=== PATIENT | female | born 1980 | race Two or more races ===

== ENCOUNTER 2018-08-30 17:00 | Observation (INO) | payer MEDICAID | END 2018-08-30 18:35 | disposition home or self-care (01) | DRG 566 | LOC: LDRP 17:00 | PROVIDERS: ADMIT Obstetrics & Gynecology; ATTEND Obstetrics & Gynecology | DX: O26.893 Other specified pregnancy related conditions, third trimester (principal); Z3A.35 35 weeks gestation of pregnancy | CPT/HCPCS: 59025; 76818; 81002; G0378 ==

== ENCOUNTER 2018-09-03 08:05 | Observation (INO) | payer MEDICAID ==
[~2018-09-03] VITALS: Ht 162.6 cm; Wt 73.9 kg
[2018-09-03] MEDS ORDERED: PREN-145 OR (08:25)
[2018-09-03] MEDS ORDERED: FERR27TA2 PO (08:25)
[2018-09-03] MEDS ORDERED: MULTCAP45 PO (08:25)
== END 2018-09-03 09:20 | disposition home or self-care (01) | DRG 955 ==
LOC: LDRP 08:05
PROVIDERS: ADMIT Obstetrics & Gynecology; ATTEND Obstetrics & Gynecology
DX: O09.523 Supervision of elderly multigravida, third trimester (principal); Z3A.35 35 weeks gestation of pregnancy
CPT/HCPCS: 59025; 76815; 81002; G0378

== ENCOUNTER 2018-09-06 11:07 | Observation (INO) | payer MEDICAID ==
[~2018-09-06 11:07] MED LIST: FERR27TA2 PO; MULTCAP45 PO; PREN-145 OR
== END 2018-09-06 12:20 | disposition home or self-care (01) | DRG 566 ==
LOC: LDRP 11:07
PROVIDERS: ADMIT Obstetrics & Gynecology; ATTEND Obstetrics & Gynecology
DX: O36.4XX0 Maternal care for intrauterine death, not applicable or unspecified (principal); Z3A.36 36 weeks gestation of pregnancy
CPT/HCPCS: 59025; 76818; 81002; G0378

== ENCOUNTER 2018-09-10 08:25 | Observation (INO) | payer MEDICAID | END 2018-09-10 11:00 | disposition home or self-care (01) | DRG 566 | LOC: LDRP 08:25 | PROVIDERS: ADMIT Obstetrics & Gynecology; ATTEND Obstetrics & Gynecology | DX: O36.4XX0 Maternal care for intrauterine death, not applicable or unspecified (principal); O09.523 Supervision of elderly multigravida, third trimester; Z3A.36 36 weeks gestation of pregnancy | CPT/HCPCS: 59025; 76815; 81002; G0378 ==

== ENCOUNTER 2018-09-13 11:55 | Observation (INO) | payer MEDICAID ==
[~2018-09-13] VITALS: Ht 162.6 cm; Wt 75.3 kg
== END 2018-09-13 13:20 | disposition home or self-care (01) | DRG 566 ==
LOC: LDRP 11:55
PROVIDERS: ADMIT Obstetrics & Gynecology; ATTEND Obstetrics & Gynecology
DX: O36.4XX0 Maternal care for intrauterine death, not applicable or unspecified (principal); O09.523 Supervision of elderly multigravida, third trimester; Z3A.37 37 weeks gestation of pregnancy
CPT/HCPCS: 76818; G0378; 59025; 81002

== ENCOUNTER 2018-09-15 08:55 | Observation (INO) | payer MEDICAID | END 2018-09-15 10:10 | disposition home or self-care (01) | DRG 566 | LOC: LDRP 08:55 | PROVIDERS: ADMIT Obstetrics & Gynecology; ATTEND Obstetrics & Gynecology | DX: O36.4XX0 Maternal care for intrauterine death, not applicable or unspecified (principal); O09.523 Supervision of elderly multigravida, third trimester; Z3A.37 37 weeks gestation of pregnancy | CPT/HCPCS: 59025; 76818; 81002; G0378 ==

== ENCOUNTER 2018-09-18 16:49 | Observation (INO) | payer MEDICAID | END 2018-09-18 22:45 | disposition home or self-care (01) | DRG 955 | LOC: LDRP 21:13 | PROVIDERS: ADMIT Obstetrics & Gynecology; ATTEND Obstetrics & Gynecology | DX: O09.523 Supervision of elderly multigravida, third trimester (principal); Z3A.38 38 weeks gestation of pregnancy | CPT/HCPCS: 59025; 76818; 81002; G0378 ==

== ENCOUNTER 2018-09-21 10:32 | Observation (INO) | payer MEDICAID | END 2018-09-21 11:45 | disposition home or self-care (01) | DRG 955 | LOC: LDRP 10:32 | PROVIDERS: ADMIT Specialist; ATTEND Specialist | DX: O09.523 Supervision of elderly multigravida, third trimester (principal); Z3A.38 38 weeks gestation of pregnancy | CPT/HCPCS: 59025; 76818; 81002; G0378 ==

== ENCOUNTER 2018-09-23 01:41 | Observation (INO) | payer MEDICAID | END 2018-09-23 03:32 | disposition home or self-care (01) | DRG 566 | LOC: LDRP 01:41 | PROVIDERS: ADMIT Specialist; ATTEND Specialist | DX: O36.8930 Maternal care for other specified fetal problems, third trimester, not applicable or unspecified (principal); O09.523 Supervision of elderly multigravida, third trimester; Z3A.38 38 weeks gestation of pregnancy | CPT/HCPCS: 59025; 76818; 81002; G0378 ==

== ENCOUNTER 2021-09-02 09:35 | Observation (INO) | payer MEDICAID | END 2021-09-02 11:43 | disposition home or self-care (01) | LOC: LDRP 09:35 | PROVIDERS: ADMIT Obstetrics & Gynecology; ATTEND Obstetrics & Gynecology | DX: O69.81X0 Labor and delivery complicated by cord around neck, without compression, not applicable or unspecified (principal); Z3A.31 31 weeks gestation of pregnancy | CPT/HCPCS: 59025; 76818; 81002; 94760; G0378 ==

== ENCOUNTER 2021-09-06 07:34 | Observation (INO) | payer MEDICAID | END 2021-09-06 10:44 | disposition home or self-care (01) | LOC: LDRP 10:06 | PROVIDERS: ADMIT Obstetrics & Gynecology Obstetrics; ATTEND Obstetrics & Gynecology Obstetrics | DX: O69.81X0 Labor and delivery complicated by cord around neck, without compression, not applicable or unspecified (principal); O09.293 Supervision of pregnancy with other poor reproductive or obstetric history, third trimester; Z3A.31 31 weeks gestation of pregnancy | CPT/HCPCS: 59025; 76818; 81002; 94760; G0378 ==

== ENCOUNTER 2021-09-09 10:19 | Observation (INO) | payer MEDICAID | END 2021-09-09 11:00 | disposition home or self-care (01) | LOC: LDRP 10:19 | PROVIDERS: ADMIT Obstetrics & Gynecology; ATTEND Obstetrics & Gynecology | DX: O69.81X0 Labor and delivery complicated by cord around neck, without compression, not applicable or unspecified (principal); Z3A.32 32 weeks gestation of pregnancy | CPT/HCPCS: 59025; 76818; 81002; 94760; G0378 ==

== ENCOUNTER 2021-09-13 08:56 | Observation (INO) | payer MEDICAID | END 2021-09-13 11:20 | disposition home or self-care (01) | LOC: LDRP 10:20 | PROVIDERS: ADMIT Obstetrics & Gynecology Obstetrics; ATTEND Obstetrics & Gynecology Obstetrics | DX: O69.81X0 Labor and delivery complicated by cord around neck, without compression, not applicable or unspecified (principal); Z3A.32 32 weeks gestation of pregnancy | CPT/HCPCS: 59025; 76818; 81002; 94760; G0378; G0379 ==

== ENCOUNTER 2021-09-16 08:14 | Observation (INO) | payer MEDICAID | END 2021-09-16 12:32 | disposition home or self-care (01) | LOC: LDRP 11:05 | PROVIDERS: ADMIT Obstetrics & Gynecology; ATTEND Obstetrics & Gynecology | DX: O69.81X0 Labor and delivery complicated by cord around neck, without compression, not applicable or unspecified (principal); O62.9 Abnormality of forces of labor, unspecified; Z3A.33 33 weeks gestation of pregnancy | CPT/HCPCS: 59025; 76818; 81002; 94760; G0378 ==

== ENCOUNTER 2021-09-23 09:29 | Observation (INO) | payer MEDICAID | END 2021-09-23 12:10 | disposition home or self-care (01) | LOC: LDRP 10:29 | PROVIDERS: ADMIT Obstetrics & Gynecology; ATTEND Obstetrics & Gynecology | DX: O69.81X0 Labor and delivery complicated by cord around neck, without compression, not applicable or unspecified (principal); Z3A.34 34 weeks gestation of pregnancy | CPT/HCPCS: 59025; 76818; 81002; G0378; G0379 ==

== ENCOUNTER 2021-09-30 09:11 | Observation (INO) | payer MEDICAID ==
[2021-09-30] MEDS ORDERED: TERBUTALINE SULFATE 1 MG/ML 1ML VIAL SC STA (11:39)
== END 2021-09-30 13:03 | disposition home or self-care (01) ==
LOC: LDRP 09:45
PROVIDERS: ADMIT Obstetrics & Gynecology; ATTEND Obstetrics & Gynecology
DX: O69.81X0 Labor and delivery complicated by cord around neck, without compression, not applicable or unspecified (principal); O62.9 Abnormality of forces of labor, unspecified; Z3A.35 35 weeks gestation of pregnancy
CPT/HCPCS: 59025; 76818; 81002; 96372; G0378; J3105

== ENCOUNTER 2021-10-05 09:25 | Observation (INO) | payer MEDICAID ==
[~2021-10-05] VITALS: Ht 162.6 cm; Wt 80.3 kg
[~2021-10-05 09:25] MED LIST changes: -FERR27TA2 PO; -PREN-145 OR
== END 2021-10-05 11:16 | disposition home or self-care (01) ==
LOC: LDRP 09:25
PROVIDERS: ADMIT Obstetrics & Gynecology; ATTEND Obstetrics & Gynecology
DX: O69.81X0 Labor and delivery complicated by cord around neck, without compression, not applicable or unspecified (principal); Z3A.35 35 weeks gestation of pregnancy
CPT/HCPCS: 59025; 76818; 81002; 94760; G0378

== ENCOUNTER 2021-10-14 09:40 | Observation (INO) | payer MEDICAID | END 2021-10-14 11:57 | disposition home or self-care (01) | LOC: LDRP 09:40 | PROVIDERS: ADMIT Obstetrics & Gynecology; ATTEND Obstetrics & Gynecology | DX: O69.81X0 Labor and delivery complicated by cord around neck, without compression, not applicable or unspecified (principal); O40.3XX0 Polyhydramnios, third trimester, not applicable or unspecified; O62.9 Abnormality of forces of labor, unspecified; O09.293 Supervision of pregnancy with other poor reproductive or obstetric history, third trimester; Z3A.37 37 weeks gestation of pregnancy | CPT/HCPCS: 59025; 76818; 81002; G0378 ==

== ENCOUNTER 2021-10-18 10:00 | Observation (INO) | payer MEDICAID | END 2021-10-18 13:28 | disposition home or self-care (01) | LOC: LDRP 10:00 | PROVIDERS: ADMIT Obstetrics & Gynecology Obstetrics; ATTEND Obstetrics & Gynecology Obstetrics | DX: O62.9 Abnormality of forces of labor, unspecified (principal); O48.0 Post-term pregnancy; O69.89X0 Labor and delivery complicated by other cord complications, not applicable or unspecified; O09.293 Supervision of pregnancy with other poor reproductive or obstetric history, third trimester; Z3A.40 40 weeks gestation of pregnancy | CPT/HCPCS: 59025; 76818; 81002; 94760; G0378 ==

== ENCOUNTER 2021-10-21 10:15 | Observation (INO) | payer MEDICAID | END 2021-10-21 11:24 | disposition home or self-care (01) | LOC: LDRP 10:15 | PROVIDERS: ADMIT Obstetrics & Gynecology; ATTEND Obstetrics & Gynecology | DX: O69.81X0 Labor and delivery complicated by cord around neck, without compression, not applicable or unspecified (principal); O09.293 Supervision of pregnancy with other poor reproductive or obstetric history, third trimester; Z3A.38 38 weeks gestation of pregnancy | CPT/HCPCS: 59025; 76818; 81002; 94760; G0378; G0379 ==

== ENCOUNTER 2021-10-25 08:50 | Observation (INO) | payer MEDICAID | END 2021-10-25 14:04 | disposition home or self-care (01) | LOC: LDRP 11:31 | PROVIDERS: ADMIT Obstetrics & Gynecology Obstetrics; ATTEND Obstetrics & Gynecology Obstetrics | DX: O09.293 Supervision of pregnancy with other poor reproductive or obstetric history, third trimester (principal); O62.9 Abnormality of forces of labor, unspecified; Z3A.38 38 weeks gestation of pregnancy | CPT/HCPCS: 59025; 76818; 81002; 94760; G0378 ==

== ENCOUNTER 2021-10-26 00:30 | Inpatient (IN) | payer MEDICAID ==
[~2021-10-26] VITALS: Ht 162.6 cm; Wt 81.6 kg
[2021-10-26] MEDS ORDERED: BUTORPHANOL TARTRATE 2 MG/1 ML VIAL IV PRN ×2 (03:00)
[2021-10-26] MEDS ORDERED: PHISODERM TOP SOLN 240ML BTL TOP PRN (03:00)
[2021-10-26] MEDS ORDERED: LIDOCAINE 2%HCL (LOCAL ANESTH.) INJ 20ML MDV IJ PRN (03:00)
[2021-10-26] MEDS ORDERED: WITCH HAZEL-GLYCERIN PAD TOP PRN (03:00)
[2021-10-26] MEDS ORDERED: DERMOPLAST 60ML BOTTLE TOP PRN (03:00)
[2021-10-26] MEDS ORDERED: PROMETHAZINE HCL 25 MG/ML 1ML IV PRN (03:00)
[2021-10-26] MEDS: LACTATED RINGER'S 1,000 ML IV SCH ×3 (03:13→18:28)
[2021-10-26] MEDS ORDERED: LACT. RINGERS/OXYTOCIN 20UNITS 500 ML IV ONE ×2 (03:15→03:45)
[2021-10-26 03:27] LABS: Basophils # (auto) 0.1 10 ^3/uL (0-0.2); Eosinophils # (auto) 0.1 10 ^3/uL (0-0.8); Lymphocytes # (auto) 1.8 10 ^3/uL (0.4-5.4); Mean Corpuscular Hgb Conc. 31.6 g/dL (32.0-36.0); Monocytes # (auto) 0.5 10 ^3/uL (0-1.3)
[2021-10-26 03:29] LABS: Hematocrit 37.1 % (36.0-46.0); Hemoglobin 11.7 g/dL (12.2-16.2); Lymphocytes % (auto) 20.1 % (10.0-50.0); Mean Corpuscular Volume 79.2 fL (80.0-100.0); Monocytes % (auto) 5.6 % (0.0-12.0); Neutrophils # (auto) 6.4 10 ^3/uL (1.6-8.6); Neutrophils % (auto) 72.3 % (37.0-80.0); Nucleated Red Blood Cells % 0.2 %; Red Blood Cells 4.68 10^6/uL (4.0-5.20); White Blood Cell 8.8 10^3/uL (4.4-10.8)
[2021-10-26 03:30] LABS: Red Cell Distribution Width 24.5 % (11.8-14.3)
[2021-10-26 03:42] LABS: INR 0.94 (0.9-1.15); Partial Thromboplastin Time 30.4 sec (23.6-33.0)
[2021-10-26 04:00] LABS: Albumin 2.7 g/dL (3.4-5.0); BUN/Creatinine Ratio 12.9; Calcium 7.6 mg/dL (8.5-10.1); Potassium 3.7 mmol/L (3.5-5.1)
[2021-10-26 04:02] LABS: Amphetamine Screen, Urine NEGATIVE (NEGATIVE); Barbiturate Scree,Urine NEGATIVE (NEGATIVE); Benzodiazephine Screen, Urine NEGATIVE (NEGATIVE); Cannabinoid Screen, Urine NEGATIVE (NEGATIVE); Cocaine Screen, Urine NEGATIVE (NEGATIVE); Opiate Scree,Urine NEGATIVE (NEGATIVE); Phencyclidine Screen, Urine NEGATIVE (NEGATIVE)
[2021-10-26 04:03] LABS: Total Protein 6.1 g/dL (6.4-8.2)
[2021-10-26 04:21] LABS: Urine Bacteria FEW /hpf (None Seen); Urine Blood TRACE /uL (Negative); Urine Mucus FEW (None Seen); Urine Specific Gravity 1.011 (1.001-1.035); Urine WBC 3 /hpf (0 - 5)
[2021-10-26] MEDS ORDERED: ONDANSETRON ODT 4 MG TAB PO PRN (04:30)
[2021-10-26] MEDS ORDERED: ACETAMINOPHEN 325 MG TAB PO PRN (04:30)
[2021-10-26] MEDS ORDERED: IBUPROFEN 800 MG TAB PO SCH (06:00)
[2021-10-26 06:45] VITALS: BP 132/60
[2021-10-26] MEDS ORDERED: IBUPROFEN 600 MG TAB PO SCH ×2 (08:18→14:30)
[2021-10-26 11:03] VITALS: BP 124/59
[2021-10-26 15:16] VITALS: BP 124/68
[2021-10-26 19:00] VITALS: BP 112/59
[2021-10-26] MEDS ORDERED: DOCUSATE SOD 100 MG CAP PO SCH (22:00)
[2021-10-26] MEDS: IBUPROFEN 600 MG TAB PO SCH (22:04)
[2021-10-26 23:00] VITALS: BP 123/61
[2021-10-27 03:00] VITALS: BP 115/58
[2021-10-27] MEDS: LACTATED RINGER'S 1,000 ML IV SCH (03:00)
[2021-10-27] MEDS: IBUPROFEN 600 MG TAB PO SCH (03:47)
[2021-10-27 06:06] LABS: RPR Non Reactive (Non Reactive)
[2021-10-27 06:38] VITALS: BP 111/76
== END 2021-10-27 09:55 | disposition home or self-care (01) | DRG 560 ==
LOC: LDRP 00:30 → OBSVTOIN 03:00 → LDRP 04:50
PROVIDERS: ADMIT Obstetrics & Gynecology Obstetrics; ATTEND Obstetrics & Gynecology Obstetrics
PROC: 10E0XZZ Delivery of Products of Conception, External Approach (ICD-10-PCS; principal; 2021-10-26)
DX: O43.893 Other placental disorders, third trimester (principal); Z37.0 Single live birth; Z20.822 Contact with and (suspected) exposure to COVID-19; Z3A.38 38 weeks gestation of pregnancy
CPT/HCPCS: 36415; 59025; 59409; 80053; 80307; 81001; 81002; 85025; 85610; 85730; 86592; 86850; 86900; 86901; 87426; 94760; 96360; 96361; 96365; 96366; G0378; J2590